=== PATIENT | female | born 1965 | race Asian ===

== ENCOUNTER 2020-08-04 06:05 | Day surgery (SDC) | payer OTHER ==
[2020-08-03 13:25] VITALS: BMI 36.3
[2020-08-04] MEDS ORDERED: LIDOCAINE HCL 1%, 10 MG/ML (20ML VIAL) ONE ×2 (07:39→13:18)
[2020-08-04] MEDS ORDERED: MIDAZOLAM HCL 2 MG/2 ML SINGLE DOSE VIAL ONE ×2 (13:42)
[2020-08-04] MEDS ORDERED: PROPOFOL 20 ML ONE (14:02)
[2020-08-04] MEDS ORDERED: LIDOCAINE HCL/PF 2% SDV 5ML VIAL ONE (14:02)
[2020-08-04] MEDS ORDERED: LIDOCAINE HCL 1%, 10 MG/ML (20ML VIAL) ID ONE ×2 (14:16)
[2020-08-04] MEDS ORDERED: KETOROLAC TROMETHAMINE 30 MG/1 ML VIAL ONE (14:21)
[2020-08-04] MEDS ORDERED: oxyCODONE HCL 5 MG TABLET PO PRN (14:43)
[2020-08-04] MEDS ORDERED: ONDANSETRON 4 MG/2 ML VIAL IVPUSH PRN (14:43)
[2020-08-04] MEDS ORDERED: LACTATED RINGERS SOLUTION 1,000 ML IV SCH (14:45)
[2020-08-04] MEDS ORDERED: oxyCODONE HCL 5 MG TABLET ONE (15:35)
[2020-08-04 16:27] VITALS: BP 136/78; PULSE 66; TEMP 97.3
== END 2020-08-04 16:35 | disposition home or self-care (01) ==
LOC: JASU-SURG 06:05
PROVIDERS: ATTEND Surgery
PROC: 0HBT0ZX Excision of Right Breast, Open Approach, Diagnostic (ICD-10-PCS; principal; 2020-08-04 12:30)
DX: N60.31 Fibrosclerosis of right breast (principal)
CPT/HCPCS: 88307-TC; 94760